=== PATIENT | female | born 1980 | race Caucasian/White ===

== ENCOUNTER 2020-09-29 13:28 | Emergency (ER) | payer OTHER, SELFPAY ==
[~2020-09-29] VITALS: Ht 165.1 cm; Wt 56.7 kg
[2020-09-29 13:31] VITALS: BP 113/77; Ht 165.1 cm; Wt 56.7 kg
[2020-09-29 15:39] LABS: BASOPHIL % 0.5 % (0.2-1.3); PLATELET COUNT 394 x10^3mcL (179-408)
[2020-09-29 15:42] LABS: RED CELL DISTRIBUTION WIDTH 17.7 % (12.3-17.7)
[2020-09-29 16:05] LABS: CALCIUM 8.9 mg/dL (8.5-10.1); CARBON DIOXIDE 23.6 mmol/L (21-32); CHLORIDE SERUM 102 mmol/L (98-107); CREATININE SERUM 0.8 mg/dL (0.6-1.0); GFR1 > 60 mL/min; GLUCOSE SERUM 89 mg/dL (74-106); POTASSIUM SERUM 4.1 mmol/L (3.5-5.1); SODIUM SERUM 136 mmol/L (136-145)
[2020-09-29 16:08] LABS: ALBUMIN 3.8 g/dL (3.4-5.0); ALKALINE PHOSPHATASE 139 U/L (46-116); ALT/SGPT 118 U/L (14-59); AST/SGOT 110 U/L (15-37); BILIRUBIN TOTAL 0.3 mg/dL (0.20-1.00)
[2020-09-29 16:09] LABS: TOTAL PROTEIN, SERUM 9.3 g/dL (6.4-8.2)
[2020-09-29 16:33] LABS: rbc morphology (normal/abnorm) ABNORMAL (NORMAL)
== END 2020-09-29 17:09 | disposition home or self-care (01) ==
LOC: ED 13:28
PROVIDERS: Emergency Medicine
DX: U07.1 COVID-19 (principal); D64.9 Anemia, unspecified
CPT/HCPCS: U0003